=== PATIENT | male | born 1935 | race African-American/Black ===

== ENCOUNTER 2017-02-03 12:27 | Emergency (ER) | payer MEDICARE, OTHER ==
[~2017-02-03] VITALS: Ht 175.3 cm; Wt 73.0 kg
[2017-02-03] MEDS ORDERED: ASPI-1035 PO (12:45)
[2017-02-03 16:43] LABS: BASOPHILS % 1.2 % (0.0-2.0); DIFFERENTIAL COMMENT 0; EOSINOPHILS % 1.7 % (0.0-5.0); HEMATOCRIT. 38.9 % (42.0-52.0); HEMOGLOBIN. 13.3 g/dL (14.0-18.0); LYMPHOCYTES % 37.8 % (20.0-50.0); MEAN CORPUSCULAR HEMOGLOBIN 31.1 pg (28.0-32.0); MEAN CORPUSCULAR HGB CONC 34.1 g/dL (31.0-37.0); MEAN CORPUSCULAR VOLUME 91.3 fL (80.0-94.0); MEAN PLATELET VOLUME 11.4 fl (7.4-10.4); MONOCYTES % 7.2 % (2.0-8.0); NEUTROPHILS % 52.1 % (40.0-76.0); PLATELET 192 x1000/uL (130-400); RED BLOOD CELL COUNT 4.26 mill/uL (4.7-6.1); RED CELL DISTRIBUTION WIDTH 12.7 % (11.6-14.6); WHITE BLOOD COUNT 4.8 x1000/uL (4.5-11.0)
[2017-02-03 16:45] LABS: INR 1.1
[2017-02-03 16:50] LABS: ALANINE AMINOTRANSFERASE 22 IU/L (13-61); ALBUMIN 3.7 g/dL (3.4-5.0); ANION GAP 7; CALCIUM 9.1 mg/dL (8.5-10.1); CARBON DIOXIDE 34 mEq/L (21-32); CHLORIDE 102 mEq/L (98-107); INDEX HEMOLYSI 1 (1-3); INDEX ICTERIC 1 (1-4); INDEX LIPEMIC 1 (1-3); UREA NITROGEN BLOOD 16 mg/dL (7-21); eGFR > 60 mL/min (>60)
[2017-02-03 18:58] LABS: CLARITY URINE CLEAR (CLEAR); COLOR URINE YELLOW (YELLOW); GLUCOSE URINE NEGATIVE (NEGATIVE); KETONES URINE NEGATIVE (NEGATIVE); LEUKOCYTE ESTERASE URINE NEGATIVE (NEGATIVE); NITRITE URINE NEGATIVE (NEGATIVE); OCCULT BLOOD URINE NEGATIVE (NEGATIVE); PROTEIN URINE NEGATIVE (NEGATIVE); SPECIFIC GRAVITY URINE 1.024 (1.005-1.030)
[2017-02-04 16:01] VITALS: BP 160/104
== END 2017-02-04 17:45 | disposition home or self-care (01) ==
LOC: ER 12:29
DX: G93.40 Encephalopathy, unspecified (principal); I10 Essential (primary) hypertension; R32 Unspecified urinary incontinence; F17.210 Nicotine dependence, cigarettes, uncomplicated; Z79.82 Long term (current) use of aspirin; Z86.73 Personal history of transient ischemic attack (TIA), and cerebral infarction without residual deficits
CPT/HCPCS: 36415; 71010; 80053; 81003; 85025; 85610; 99285

== ENCOUNTER 2017-12-01 16:28 | Observation (INO) | payer MEDICARE, MEDICAID ==
[~2017-12-01] VITALS: Ht 175.3 cm; Wt 56.7 kg
[~2017-12-01 16:28] MED LIST: ASPI-1159 PO
[2017-12-01] MEDS ORDERED: SODIUM CHLORIDE 0.9% 500 ML IV ONE (18:52)
[2017-12-01 19:30] LABS: CHLORIDE 97 mEq/L (98-107); INR 1.1; PARTIAL THROMBOPLASTIN TIME 29.6 sec (23.4-31.0); PROTHROMBIN TIME 10.9 sec (9.4-11.6)
[2017-12-01 19:41] LABS: BASOPHILS % 0.6 % (0.0-2.0); EOSINOPHILS % 1.6 % (0.0-5.0); HEMATOCRIT. 38.8 % (42.0-52.0); HEMOGLOBIN. 13.5 g/dL (14.0-18.0); LYMPHOCYTES % 38.5 % (20.0-50.0); MEAN CORPUSCULAR HEMOGLOBIN 31.8 pg (28.0-32.0); MEAN CORPUSCULAR VOLUME 90.9 fL (80.0-94.0); MEAN PLATELET VOLUME 8.9 fl (7.4-10.4); MONOCYTES % 9.6 % (2.0-8.0); NEUTROPHILS % 49.7 % (40.0-76.0); PLATELET 458 x1000/uL (130-400); RED BLOOD CELL COUNT 4.26 mill/uL (4.7-6.1)
[2017-12-01] MEDS ORDERED: ACET-2178 PO (21:25)
[2017-12-01] MEDS ORDERED: CLON0.1T PO (21:25)
[2017-12-01] MEDS ORDERED: GABA-529 PO (21:25)
[2017-12-01] MEDS ORDERED: LOSA1TAB34 PO (21:25)
[2017-12-01] MEDS ORDERED: SENN-169 PO (21:25)
[2017-12-01] MEDS ORDERED: OMEP40CA34 PO (21:25)
[2017-12-01] MEDS ORDERED: DONE5TAB7 PO (21:25)
[2017-12-01] MEDS ORDERED: [UNRECOGNIZED DRUG - CODE] PO (21:27)
[2017-12-01 23:45] VITALS: BP 151/75
[2017-12-02] VITALS: BP 151/75
[2017-12-02] MEDS ORDERED: ENALAPRIL 1.25 MG in DEXTROSE 5% WATER 49 ML IV PRN (01:15)
[2017-12-02] MEDS ORDERED: ONDANSETRON HCL 4MG/2ML VIAL IV PRN (01:15)
[2017-12-02 04:00] VITALS: BP 132/60
[2017-12-02] MEDS: DEXT 5%/0.45% NACL 1000ML 1,000 ML IV SCH ×2 (06:19→21:06)
[2017-12-02 08:00] VITALS: BP 112/82
[2017-12-02] MEDS: PANTOPRAZOLE SODIUM 40 MG/VIAL IV SCH (08:40)
[2017-12-02 11:40] LABS: INR 1.1; PARTIAL THROMBOPLASTIN TIME 29.6 sec (23.4-31.0)
[2017-12-02 11:47] LABS: CHLORIDE 99 mEq/L (98-107)
[2017-12-02 12:00] VITALS: BP 131/75
[2017-12-02 12:27] LABS: HEMATOCRIT 35.4 % (42.0-52.0); HEMOGLOBIN 12.4 g/dL (14.0-18.0); MEAN CORPUSCULAR HEMOGLOBIN 31.6 pg (28.0-32.0); MEAN CORPUSCULAR VOLUME 90.4 fL (80.0-94.0); PLATELET 443 x1000/uL (130-400); RED BLOOD CELL COUNT 3.92 mill/uL (4.7-6.1)
[2017-12-02] MEDS ORDERED: SIMETHICONE 40 MG/0.6 ML 30ML ONE (13:50)
[2017-12-02] MEDS ORDERED: SODIUM CHLORIDE 0.9% 10ML VIAL ONE (13:50)
[2017-12-02] MEDS ORDERED: CEFAZOLIN 1000MG PREMIX 50 ML IV NR (14:00)
[2017-12-02] MEDS ORDERED: FENTANYL CITRATE/PF 50MCG/ML 2ML VIAL ONE (15:16)
[2017-12-02] MEDS ORDERED: MIDAZOLAM HCL 5 MG/5 ML VIAL ONE (15:16)
[2017-12-02] MEDS ORDERED: MIDAZOLAM HCL 2 MG/2 ML VIAL IV PRN (15:54)
[2017-12-02] MEDS ORDERED: FENTANYL CITRATE/PF 50MCG/ML 2ML VIAL IV PRN (15:55)
[2017-12-02 16:00] VITALS: BP 130/70
[2017-12-02 20:00] VITALS: BP 135/61
[2017-12-03] VITALS: BP 165/89
[2017-12-03 04:00] VITALS: BP 123/53
[2017-12-03 08:00] VITALS: BP 130/60
[2017-12-03] MEDS: PANTOPRAZOLE SODIUM 40 MG/VIAL IV SCH (08:51)
[2017-12-03 12:00] VITALS: BP 147/58
[2017-12-03] MEDS: DEXT 5%/0.45% NACL 1000ML 1,000 ML IV SCH (12:20)
[2017-12-04] MEDS ORDERED: FAMOTIDINE 20MG/2ML VIAL IV SCH (09:00)
== END 2017-12-03 17:50 ==
LOC: ER 18:00 → INTOOBSV 19:02 → 6EST 19:02 → EDBEDREQ 19:04 → EDBEDREQSVC 19:12 → EDBEDREQ 19:33 → ENRESERV 20:05
PROVIDERS: ADMIT Internal Medicine; ATTEND Internal Medicine
DX: K94.23 Gastrostomy malfunction (principal); K21.9 Gastro-esophageal reflux disease without esophagitis; K29.70 Gastritis, unspecified, without bleeding; I10 Essential (primary) hypertension; F03.90 Unspecified dementia, unspecified severity, without behavioral disturbance, psychotic disturbance, mood disturbance, and anxiety; R13.12 Dysphagia, oropharyngeal phase; K44.9 Diaphragmatic hernia without obstruction or gangrene; Z79.899 Other long term (current) drug therapy; Z86.73 Personal history of transient ischemic attack (TIA), and cerebral infarction without residual deficits; Z87.891 Personal history of nicotine dependence
CPT/HCPCS: 36415; 43246; 71045; 80048; 80053; 85025; 85027; 85610; 85730; 86850; 86900; 86901; 93005; 96365; 96375; 96376; 99285; A4216; C9113; G0378; J0690; J2250; J3010; J3490; J7040; 96360